=== PATIENT | female | born 1975 | race African-American/Black ===

== ENCOUNTER 2018-02-03 01:41 | Emergency (ER) | payer MEDICAID, OTHER ==
[~2018-02-03] VITALS: Ht 162.6 cm; Wt 79.4 kg
[2018-02-03 03:15] LABS: Basophils # (auto) 0 uL; Basophils % (auto) 0.3 % (0.0-2.0); Eosinophils # (auto) 0 uL; Eosinophils % (auto) 0.1 % (0.0-7.0)
[2018-02-03 03:17] LABS: Lymphocytes # (auto) 2.4 uL; Lymphocytes % (auto) 18.4 % (10.0-50.0); Mean Corpuscular Hemoglobin 17.2 pg (28.0-32.0); Mean Corpuscular Volume 59.3 fL (80.0-100.0); Monocytes # (auto) 0.8 uL; Monocytes % (auto) 6.1 % (0.0-12.0); Neutrophils # (auto) 9.8 uL; Neutrophils % (auto) 75.1 % (37.0-80.0); Platelet Count (auto) 226 10^3/uL (140-450); Red Blood Cells 4.73 10^6/uL (4.0-5.20)
[2018-02-03 03:24] LABS: Hemoglobin 8.2 g/dL (12.2-16.2); Red Cell Distribution Width 20.9 % (11.8-14.3)
[2018-02-03 03:34] LABS: Albumin 3.4 g/dL (3.4-5.0); Calcium 8.9 mg/dL (8.5-10.1); Potassium 3.7 mmol/L (3.5-5.1)
[2018-02-03 03:38] LABS: BUN/Creatinine Ratio 5.5; Bilirubin, Total 0.5 mg/dL (0.2-1.0); Total Protein 8.1 g/dL (6.4-8.2)
[2018-02-03 03:45] LABS: Urine Bacteria FEW /hpf (None Seen); Urine Blood 2+ /uL (Negative); Urine Specific Gravity 1.017 (1.001-1.035); Urine WBC 4443 /hpf (0 - 5); Urine WBC Clumps PRESENT /hpf (None Seen)
[2018-02-03] MEDS ORDERED: SODIUM CHLORIDE 0.9% 1,000 ML IVB ONE (05:05)
[2018-02-03] MEDS ORDERED: ONDANSETRON HCL 4 MG/2 ML VIAL IV ONE (05:15)
[2018-02-03] MEDS ORDERED: MORPHINE SULFATE 4 MG/ML SYR/VIAL IV ONE (05:15)
[2018-02-03 07:33] VITALS: BP 128/72
[2018-02-03 07:41] LABS: Basophils # (auto) 0 uL; Basophils % (auto) 0.3 % (0.0-2.0); Hemoglobin 7.5 g/dL (12.2-16.2); Lymphocytes # (auto) 1.9 uL; Mean Corpuscular Volume 59.5 fL (80.0-100.0); Neutrophils # (auto) 10.6 uL; White Blood Cell 13.4 10^3/uL (4.4-10.8)
[2018-02-03 07:43] LABS: Eosinophils # (auto) 0 uL; Eosinophils % (auto) 0.2 % (0.0-7.0); Hematocrit 25.7 % (36.0-46.0); Mean Corpuscular Hemoglobin 17.5 pg (28.0-32.0); Mean Corpuscular Hgb Conc. 29.4 g/dL (32.0-36.0); Monocytes # (auto) 0.8 uL; Monocytes % (auto) 6.2 % (0.0-12.0); Neutrophils % (auto) 79.3 % (37.0-80.0); Platelet Count (auto) 201 10^3/uL (140-450); Red Blood Cells 4.31 10^6/uL (4.0-5.20)
[2018-02-03 07:47] LABS: Red Cell Distribution Width 21.2 % (11.8-14.3)
[2018-02-03 08:03] LABS: Albumin 3.1 g/dL (3.4-5.0); Calcium 8.8 mg/dL (8.5-10.1); Potassium 3.6 mmol/L (3.5-5.1)
[2018-02-03 08:06] LABS: BUN/Creatinine Ratio 5.4; Bilirubin, Total 0.5 mg/dL (0.2-1.0); Total Protein 7.6 g/dL (6.4-8.2)
== END 2018-02-03 12:34 | disposition home or self-care (01) ==
LOC: EDBD 01:41 → ER 01:53
DX: N39.0 Urinary tract infection, site not specified (principal); J45.909 Unspecified asthma, uncomplicated; F17.210 Nicotine dependence, cigarettes, uncomplicated; F12.90 Cannabis use, unspecified, uncomplicated; Z90.49 Acquired absence of other specified parts of digestive tract
CPT/HCPCS: 36415; 80053; 81001; 81025; 82150; 83605; 83690; 85025; 87040; 87077; 87086; 87088; 87186; 96374; 96375; 99284; J2270; J2405

== ENCOUNTER 2020-08-29 11:36 | Emergency (ER) | payer OTHER ==
[~2020-08-29] VITALS: Ht 152.4 cm; Wt 65.8 kg
[2020-08-29 12:03] LABS: Basophils # (auto) 0 10 ^3/uL (0-0.2); Eosinophils # (auto) 0.2 10 ^3/uL (0-0.8); Eosinophils % (auto) 1.3 % (0.0-7.0); Mean Corpuscular Hemoglobin 14.4 pg (28.0-32.0); Monocytes # (auto) 0.9 10 ^3/uL (0-1.3); Nucleated Red Blood Cells % 0.1 %
[2020-08-29 12:04] LABS: Basophils % (auto) 0.4 % (0.0-2.0); Hematocrit 23.5 % (36.0-46.0); Lymphocytes % (auto) 24.2 % (10.0-50.0); Mean Corpuscular Hgb Conc. 27.4 g/dL (32.0-36.0); Mean Corpuscular Volume 52.7 fL (80.0-100.0); Monocytes % (auto) 7.3 % (0.0-12.0); Neutrophils # (auto) 8.3 10 ^3/uL (1.6-8.6); Neutrophils % (auto) 66.8 % (37.0-80.0); Platelet Count (auto) 228 10^3/uL (140-450); Red Blood Cells 4.46 10^6/uL (4.0-5.20); White Blood Cell 12.4 10^3/uL (4.4-10.8)
[2020-08-29 12:24] LABS: Albumin 3.1 g/dL (3.4-5.0); Calcium 9.4 mg/dL (8.5-10.1); Potassium 3.7 mmol/L (3.5-5.1)
[2020-08-29 12:25] LABS: Hemoglobin 6.4 g/dL (12.2-16.2); Red Cell Distribution Width 22.4 % (11.8-14.3)
[2020-08-29 12:36] LABS: Urine Bacteria NONE SEEN /hpf (None Seen); Urine Blood 3+ /uL (Negative); Urine WBC 533 /hpf (0 - 5); Urine WBC Clumps PRESENT /hpf (None Seen)
[2020-08-29 12:38] LABS: Bilirubin, Total 0.3 mg/dL (0.2-1.0); Total Protein 7.8 g/dL (6.4-8.2)
[2020-08-29] MEDS ORDERED: levoFLOXacin 500MG 100 ML IV ONE (14:45)
[2020-08-29 15:50] VITALS: BP 140/77
[2020-08-29 16:15] VITALS: BP 130/75
[2020-08-29 16:54] VITALS: BP 140/77
[2020-08-29 17:00] VITALS: BP 127/29
[2020-08-29] MEDS ORDERED: MORPHINE SULF INJ 2 MG/ML SYRINGE 1ML IV ONE (18:15)
[2020-08-29 19:51] VITALS: BP 133/83
== END 2020-08-29 20:41 | disposition hospice, inpatient (51) ==
LOC: ER 11:36
DX: D64.9 Anemia, unspecified (principal); N85.2 Hypertrophy of uterus; J45.909 Unspecified asthma, uncomplicated; I10 Essential (primary) hypertension; F17.210 Nicotine dependence, cigarettes, uncomplicated; Z90.49 Acquired absence of other specified parts of digestive tract; Z88.0 Allergy status to penicillin
CPT/HCPCS: 36415; 36430; 74176; 80053; 81001; 83690; 85025; 86850; 86900; 86901; 86920; 87426; 96365; 96375; 99291; J2270; P9016